=== PATIENT | male | born 2000 | race Two or more races ===

== ENCOUNTER 2022-08-14 21:43 | Emergency (ER) | payer OTHER ==
[~2022-08-14] VITALS: Ht 167.6 cm; Wt 81.6 kg
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
[2022-08-15] MEDS ORDERED: IBUP-1957 PO (01:54)
[2022-08-15 01:56] VITALS: BP 135/77
--- NOTE | 2022-08-15 01:56 | NUR ---
Patient discharged to home in stable condition. Written and verbal after care instructions given. Patient verbalizes understanding of instruction.
== END 2022-08-15 01:59 | disposition home or self-care (01) ==
LOC: ER 21:44
DX: M79.602 Pain in left arm (principal); R20.2 Paresthesia of skin; R51.9 Headache, unspecified; M54.2 Cervicalgia; Z79.1 Long term (current) use of non-steroidal anti-inflammatories (NSAID); V49.49XA Driver injured in collision with other motor vehicles in traffic accident, initial encounter; Y93.89 Activity, other specified; Y92.89 Other specified places as the place of occurrence of the external cause; Y99.8 Other external cause status
CPT/HCPCS: 70450-TC; 71045-TC; 72125-TC; 73030-TC; 73090-TC